=== PATIENT | female | born 1990 | race Caucasian/White ===

== ENCOUNTER 2020-05-28 09:56 | Emergency (ER) | payer BC ==
[~2020-05-28] VITALS: Ht 162.6 cm; Wt 59.7 kg
--- NOTE | 2020-05-28 10:36 | NUR ---
TO [facility] FROM LOBBY
--- NOTE | 2020-05-28 10:38 | NUR ---
LINDA RN: THIS IS A 30 YEAR OLD WITH WHO HAS COVID-19 POSITIVE, WHO C/O OF THROAT PAIN AND SWELLING, (ABLE TO COMPLETE SENTENCES), PT ALSO C/O OF BILATERAL CALF PAIN.
[2020-05-28] MEDS ORDERED: KETOROLAC 30 MG/1 ML ONE (11:43)
[2020-05-28] MEDS ORDERED: KETOROLAC 30 MG/1 ML IM ONE (12:00)
[2020-05-28 12:48] VITALS: BP 127/83
== END 2020-05-28 12:50 | disposition home or self-care (01) ==
LOC: ED 12:30
DX: U07.1 COVID-19 (principal); J02.8 Acute pharyngitis due to other specified organisms; B34.9 Viral infection, unspecified
CPT/HCPCS: 71045; 87081; 87880; 96372; 99284; J1885